=== PATIENT | female | born 1965 | race Caucasian/White ===

== ENCOUNTER 2019-01-23 09:42 | Day surgery (SDC) | payer OTHER ==
[2019-01-15 12:04] VITALS: BMI 26.6
[2019-01-23] MEDS ORDERED: MIDAZOLAM HCL 2 MG/2 ML SINGLE DOSE VIAL ONE (10:20)
[2019-01-23] MEDS ORDERED: BUPIVACAINE HCL/PF 0.5% (5MG/ML) 10 ML VIAL ONE (10:57)
[2019-01-23] MEDS ORDERED: LIDOCAINE 1%/EPI 1:100000 (20 ML MULTI DOSE VIAL) ONE (10:58)
[2019-01-23] MEDS ORDERED: PROPOFOL 20 ML ONE (11:03)
[2019-01-23] MEDS ORDERED: LIDOCAINE HCL 2% JELLY (5 ML/TUBE) ONE (11:05)
[2019-01-23] MEDS ORDERED: KETOROLAC TROMETHAMINE 30 MG/1 ML VIAL ONE (11:05)
[2019-01-23] MEDS ORDERED: ONDANSETRON 4 MG/2 ML VIAL ONE (11:05)
[2019-01-23] MEDS ORDERED: ceFAZolin SODIUM 1 GM VIAL ONE (11:05)
[2019-01-23] MEDS ORDERED: DEXAMETHASONE SOD PHOSPHATE 4 MG/1 ML VIAL ONE (11:05)
--- NOTE | 2019-01-23 11:25 | HP ---
[facility]ellite [facility] - Chief Complaint Chief Complaint: right knee pain - Past Medical History Allergies/Adverse Reactions: Allergies Allergy/AdvReac Type Severity Reaction Status Date / Time No Known Drug Allergies Allergy Verified 01/23/19 10:02 - Current Medications Current Medications: Home Medications Medication Instructions Recorded B12/Iodin/Mag/Zinc/Meseret/[id number] 1 each PO DAILY 01/15/19 [Adrenoid Capsule] B3/Azel AC/Zinc/B6/Copper/FA 1 each PO DAILY 01/15/19 [Nicazel Tablet] Diphenhydramine HCl [Benadryl 25 mg PO PRN 01/15/19 Capsule -] Gluc Hoover/Chondro Hoover A/Vit C/Mn 1 each PO DAILY 01/15/19 [Glucosamine-Chondroitin Caps] Magnesium Oxide [Mag-Ox -] 400 mg PO DAILY 01/15/19 Omeprazole 20 mg PO DAILY 01/15/19 Sumatriptan Succinate [Imitrex -] 100 mg PO PRN PRN 01/15/19 Turmeric 400 mg PO DAILY 01/15/19 Oxycodone HCl/Acetaminophen 1 tab PO Q6H #20 tablet MDD 4 01/23/19 [Percocet 5-325 mg Tablet] Satellite Physical Exam - Physical Examination Vital Signs: Vital Signs Period Temp Pulse Resp BP Sys/Ortiz Pulse Ox Last 24 Hr 98.3 F 76 20 143/86 96 General Appearance: Well Nourished, Well Developed, Alert & Oriented x3 ENT: Clear Lung: Normal air movement Heart: Regular rate & rhythm Extremities: Other (right knee- + swelling, + ttp, decr rom, + mcmurrays, nvi. MRI + mt) Neurological: Intact, Alert, Oriented Satellite Impression/Plan - Impression/Plan Impression: right knee internal derangement Operative Procedure: right knee arthroscopy Date to be Performed: 01/23/19
[2019-01-23] MEDS ORDERED: oxyCODONE HCL 5 MG TABLET PO PRN ×2 (11:57)
[2019-01-23] MEDS ORDERED: PROMETHAZINE HCL 25 MG/1 ML VIAL IVPUSH PRN (11:57)
[2019-01-23] MEDS ORDERED: ONDANSETRON 4 MG/2 ML VIAL IVPUSH PRN (11:57)
[2019-01-23 13:25] VITALS: TEMP 98.8
--- NOTE | 2019-01-23 13:50 | OP ---
Operative Note - Note: Operative Date: 01/23/19 (aldo) Pre-Operative Diagnosis: right knee internal derangement Operation: right knee arthroscopy with PMM Post-Operative Diagnosis: Same as Pre-op Surgeon: Samson Allred Anesthesiologist/FREIGHT RECEIVER: Steven Queen Anesthesia: General, Local Specimens Removed: shavings Estimated Blood Loss (mls): 5 Operative Report Dictated: Yes
[2019-01-23 14:16] VITALS: BP 130/75; PULSE 72
--- NOTE | 2019-01-23 21:15 | SPEC ---
DATE OF OPERATION: 01/23/2019 PREOPERATIVE DIAGNOSIS: Right medial meniscal tear. POSTOPERATIVE DIAGNOSIS: Right medial meniscal tear. PROCEDURE: Arthroscopy with right knee partial medial meniscectomy. SURGICAL ATTENDING: Samson Allred MD ANESTHESIA: General with LMA. CLOSURE: 4-0 nylon. COMPLICATIONS: None. CONDITION: To recovery room in stable condition. DESCRIPTION OF OPERATIVE PROCEDURE: Patient was taken to the operating room on January 23, 2019. General anesthesia with LMA was administered by the anesthesiologist. The right lower extremity was prepped and draped in the usual sterile fashion. The medial and lateral infrapatellar portal sites were infiltrated with 1% Xylocaine with epinephrine. Both portals were then made with a 15 blade followed by a blunt trocar. The scope was placed in the lateral infrapatellar portal and up into the suprapatellar pouch. The knee was inflated with a cocktail of 10 mL of 1% Xylocaine, 10 mL of 0.5% Marcaine, and 20 mL of arthroscopic saline. This was allowed to sit in the knee for a few minutes to allow the anesthetic to work intraarticularly. The scope was placed in the lateral infrapatellar portal and up into the suprapatellar pouch. The pouch was visualized to be clean. The medial and lateral gutters were visualized to be clean. The undersurface of the patella and trochlea were visualized to be intact. With valgus stress on the knee, the medial compartment was entered. The medial meniscus was visualized, probed, and found to have a complex tear of the posterior horn. This was debrided back to smooth stable meniscal tissue using a meniscal biter and arthroscopic shaver. The medial femoral condyle was run and found to be intact as well as the medial tibial plateau. At 90 degrees, the ACL was visualized, probed, and found to be intact. In the figure 4 position, the lateral compartment was entered. The lateral meniscus was visualized, probed, and found to be intact. The lateral femoral condyle was run and found to be intact as was the lateral tibial plateau. The knee was irrigated with copious amounts of irrigation and then the fluid was drained. The inferomedial portal was closed then with 4-0 nylon. Prior to pulling the trocar from the lateral infrapatellar portal, 20 mL of 0.5% Marcaine was infused into the knee for postoperative analgesia. The trocar was then pulled, and the incision was closed with 4-0 nylon suture. A sterile pressure dressing was applied. Patient awakened from anesthesia and transferred to recovery in stable condition. No complication. Estimated blood loss negligible. Lindy [id number]
== END 2019-01-23 14:00 | disposition home or self-care (01) ==
LOC: FASU 09:42
PROVIDERS: ATTEND Orthopaedic Surgery
PROC: 0SBC4ZZ Excision of Right Knee Joint, Percutaneous Endoscopic Approach (ICD-10-PCS; principal; 2019-01-23 11:29)
DX: S83.231A Complex tear of medial meniscus, current injury, right knee, initial encounter (principal); X58.XXXA Exposure to other specified factors, initial encounter; Y93.9 Activity, unspecified; Y92.9 Unspecified place or not applicable; Y99.9 Unspecified external cause status
CPT/HCPCS: 94760

== ENCOUNTER 2023-09-14 06:44 | Emergency (ER) | payer OTHER ==
[2023-09-14 06:54] VITALS: BP 159/96; PULSE 94; RESP 18; TEMP 97.9; BMI 24.0
[2023-09-14] MEDS ORDERED: IBUPROFEN 600 MG TABLET (FP) PO ONE (07:36)
[2023-09-14] MEDS ORDERED: LIDOCAINE 5% TOPICAL PATCH ONE (07:36)
[2023-09-14] MEDS: IBUPROFEN 600 MG TABLET (FP) PO ONE (07:41)
[2023-09-14] MEDS: LIDOCAINE 5% TOPICAL PATCH TP ONE (07:41)
== END 2023-09-14 08:56 | disposition home or self-care (01) ==
LOC: FER 06:44
DX: S22.32XA Fracture of one rib, left side, initial encounter for closed fracture (principal); X58.XXXA Exposure to other specified factors, initial encounter
CPT/HCPCS: 71101-TC-LT-FY; 93005; 99284-25